=== PATIENT | female | born 1960 | race Caucasian/White ===

== ENCOUNTER → 2018-10-13 09:19 | Outpatient (CLI) | payer OTHER, SELFPAY ==
--- NOTE | 2018-10-13 09:31 | US_ITS ---
STUDY: ULTRASOUND BREAST - RIGHT REASON FOR EXAM: Female, 58 years old. Palpable lump TECHNIQUE: Axial and longitudinal images of the RIGHT breast were performed with a high resolution ultrasound transducer. COMPARISON: None. FINDINGS: RIGHT Breast: Ultrasound evaluation of the palpable right breast lump shows it to correspond with the punctate calcification in the right breast. There is a shadowing 0.5 x 0.4 x 0.5 cm subcutaneous nodule. No architectural distortion or vascularity noted. US/Breast Limited Unilateral IMPRESSION: Palpable lump corresponds to a punctate calcification. No suspicious sonographic findings, patient should return for yearly screening mammogram. ASSESSMENT CATEGORY: BIRADS Category 2: Benign. A letter regarding these results will be sent to the patient by the facility within 30 days. Electronically Signed: Stewrat Ochoa MD at 11:04 EDT , Service support ,
--- NOTE | 2018-10-13 09:31 | BI_ITS ---
MAMMOGRAPHY - BILATERAL DIAGNOSTIC REASON FOR EXAM: Female, 58 years old. Palpable lump PERTINENT HISTORY: Non-contributory. TECHNIQUE: Digital examination. Mediolateral oblique (MLO) and craniocaudad (CC) views of both breasts were obtained. CAD: CAD was performed on this study. COMPARISON: None. FINDINGS: Breast Composition: The breasts are heterogeneously dense, which may obscure small masses. There are no dominant masses or suspicious calcifications. No mammographic evidence of abnormality to correspond with the palpable lump in the right breast. However, further evaluation of this area with ultrasound is recommended to exclude an underlying lesion. No other significant abnormalities are identified. BI/DIAG MAMM W/CAD, BILAT IMPRESSION: Further ultrasonographic evaluation recommended, as described above. Recall Side: Right Breast ASSESSMENT CATEGORY: BIRADS Category 0: Incomplete. Need additional imaging evaluation. A letter regarding these results will be sent to the patient by the facility within 30 days. FOLLOW UP RECOMMENDATION: Ultrasound Recommended. (I) Approximately 10% of breast cancers are not detected by mammography. A normal mammogram should not delay biopsy of a clinically suspicious abnormality. Electronically Signed: Stewart Ochoa MD at 10:55 EDT , Service support ,
== END ==
PROVIDERS: Family Provider Family Medicine; PCP Family Medicine; Referring Provider Nurse Practitioner Family
DX: N63.13 Unspecified lump in the right breast, lower outer quadrant (principal)
CPT/HCPCS: 76642; 77062; 77066; G0279

== ENCOUNTER 2022-02-10 11:23 | Emergency (ER) | payer SELFPAY ==
[2022-02-10 11:25] VITALS: BP 107/55; PULSE 51; RESP 17; TEMP 36.4; O2SAT 98; BMI 19.5
[2022-02-10 11:38] VITALS: BP 124/57; PULSE 54; RESP 15; O2SAT 97
[2022-02-10 11:52] VITALS: BP 109/68; BP 110/72; BP 118/57; PULSE 52; PULSE 57; PULSE 62
--- NOTE | 2022-02-10 12:38 | CT_ITS ---
STUDY: CT BRAIN WITHOUT CONTRAST REASON FOR EXAM: Female, 61 years old. dizziness RADIATION DOSAGE (If Supplied By Facility): CTDIvol = ( 44.99 ) mGy, DLP = ( 779.24 ) mGycm TECHNIQUE: Transaxial CT imaging of the brain was performed without administration of intravenous contrast material. Individualized dose optimization techniques were used for this CT. COMPARISON: No relevant priors. FINDINGS: Normal soft tissue structures. Normal calvarium. Normal size ventricles and extra-axial spaces for the patient''s age. Normal white matter tracts of the cerebral hemispheres. Normal basal ganglia and thalami. Normal brainstem. Normal cerebellum. There is no intracranial hemorrhage. There are no findings of an acute ischemic infarction. Normal visualized paranasal sinuses. CT/Brain/Head without Contrast IMPRESSION: Normal unenhanced CT scan of the brain. Electronically Signed: Yannick Paul MD at 13:16 EDT ,
--- NOTE | 2022-02-10 12:41 | EX.ED.DYSGE1 ---
HPI History of Present Illness Chief Complaint: Dizziness Informant: patient Narrative Narrative: 61-year-old female states that this morning she turned her alarm off and went to sit up out of bed when she acutely became dizzy. She notes that it is worse when she has her eyes open and when she attempts to turn her head or walk. She does give a sensation that the room is spinning as well as nausea. She denies any headache or recent URIs. She denies any face arm or leg symptoms. No confusion. No tinnitus. She also notes pain in her right scapular region. Feels better with shortening of the rhomboid muscles. It is worse when she types at work and at home. [facility] Medical History (Updated 02/10/22 @ 12:[address] Sal Cook DO) Depression Home Medications hydrocodone-acetaminophen 5-325mg 5mg-325mg 1 tab PO Q6H PRN PRN Pain ##12 12/22/16 [Rx Last Taken Unknown] ibuprofen 600 mg tablet 600 mg PO Q6H PRN PRN Pain ##30 12/22/16 [Rx Last Taken Unknown] escitalopram oxalate 5 mg tablet 5 mg PO DAILY 02/10/22 [History Last Taken Unknown] Allergy/AdvReac Type Severity Reaction Status Date / Time No Known Allergies Allergy Verified 12/21/16 23:24 Social History (Updated 02/10/22 @ 12:[address] Sal Cook DO) Smoking Status: Current every day smoker tobacco type: cigarettes substance use type: does not use ROS ROS ED Constitutional Constitutional ED: Denies chills or weight loss Eyes Eyes: Denies change in vision or diplopia ENT ENT ED: Denies ear pain, rhinorrhea or sore throat Cardiovascular Cardiovascular: Denies chest pain, orthopnea, palpitations or racing heartbeat Respiratory/Chest Respiratory/Chest: Denies cough, dyspnea or orthopnea Gastrointestinal Gastrointestinal: Reports nausea; Denies abdominal pain, diarrhea or vomiting Genitourinary Genitourinary ED: Denies dysuria, hematuria or urinary frequency Musculoskeletal Musculoskeletal: Reports back pain; Denies arthralgias or myalgias Integumentary Denies abscess or rash Neurologic Neurologic: Denies headache(s) or weakness Psychiatric Psychiatric: Denies anxiety, depression, suicidal ideation or suicidal thoughts Endocrine Endocrinology: Denies polydipsia, polyphagia or polyuria Allergic/Immunologic Allergic/Immunologic ED: Denies mouth swelling, tongue swelling or urticaria EXAM Physical Exam Const Vital Signs: 02/10/22 11:25 02/10/22 11:38 02/10/22 11:39 Temperature 97.5 F L Temperature Source Temporal Pulse Rate 51 L 54 L Pulse Rate [Lying] Pulse Rate [Sitting (for 1 minute prior to obtaining)] Pulse Rate [Standing (for 1 minute prior to obtaining)] Respiratory Rate 17 15 Respiratory Effort Normal Non-Labored Respiratory Pattern Normal Blood Pressure 107/55 L 124/57 H Blood Pressure [Lying] Blood Pressure [Sitting (for 1 minute prior to obtaining)] Blood Pressure [Standing (for 1 minute prior to obtaining)] Blood Pressure Mean 72 79 Blood Pressure Mean [Lying] Blood Pressure Mean [Sitting (for 1 minute prior to obtaining)] Blood Pressure Mean [Standing (for 1 minute prior to obtaining)] Pulse Ox 98 97 Oxygen Delivery Method Room Air Room Air 02/10/22 11:52 02/10/22 13:52 Temperature Temperature Source Pulse Rate 68 Pulse Rate [Lying] 52 L Pulse Rate [Sitting (for 1 minute prior to obtaining)] 57 L Pulse Rate [Standing (for 1 minute prior to obtaining)] 62 Respiratory Rate 15 Respiratory Effort Respiratory Pattern Blood Pressure 110/58 L Blood Pressure [Lying] 118/57 L Blood Pressure [Sitting (for 1 minute prior to obtaining)] 110/72 Blood Pressure [Standing (for 1 minute prior to obtaining)] 109/68 Blood Pressure Mean 75 Blood Pressure Mean [Lying] 77 Blood Pressure Mean [Sitting (for 1 minute prior to obtaining)] 84 Blood Pressure Mean [Standing (for 1 minute prior to obtaining)] 81 Pulse Ox Oxygen Delivery Method Room Air Positive well nourished and well developed General Appearance ED: well developed HEENT Reports normocephalic, head/scalp atraumatic and moist mucous membranes Eyes PERRL and EOMs intact bilaterally Eyes Narrative: The factThere is some nystagmus component to the left. Neck no lymphadenopathy, supple and no JVD Resp normal respiratory effort and clear to auscultation bilaterally Cardio regular rate, regular rhythm and no murmurs GI normal to inspection, nondistended, normoactive bowel sounds and non-tender Palpation: soft Back/Spine no CVA tenderness and normal ROM Back/Spine Narrative: Patient has point tenderness in the knee right upper rhomboid muscle. There is a palpatory trigger point. Patient feels better with direct pressure and shortening of the muscle. No rashes Extremity normal to inspection General Extremety ED: Negative for edema General Extremity: Negative for edema Neuro oriented x3 and CN's II-XII intact bilaterally Sensorium / Orientation: alert Motor Exam: strength 5/5 throughout Psych mental status grossly normal Mood & Affect: Negative for depressed or tearful Skin no rashes or lesions noted and no wounds MDM MDM MDM Narrative Medical decision making narrative: CT the brain is negative. His CBC BMP is normal. Patient received diazepam and Zofran. She is able to walk to the bathroom states she feels more sedated than dizzy. I think this is most likely to be positional vertigo. Patient states now she typically will go onto her left side and then set up rather than going from a flat position to sitting up which is what she did today. She does this because of dizziness. Patient will be prescribed some diazepam and Zofran to have at home. I will give her handout on home treatment and would recommend ENT follow-up if this becomes problematic. Lab Data Attestation: I reviewed the patient's lab results. Labs: Laboratory Results - last 24 hr 02/10/22 02/10/22 11:49 11:49 WBC 5.0 RBC 3.48 L Hgb 12.1 Hct 35.8 L MCV 102.9 H MCH 34.8 H MCHC 33.8 RDW Std Deviation 48.7 H RDW Coeff of Emmie 13.0 Plt Count 234 MPV 11.0 Immature Gran % (Auto) 0.200 Neut % (Auto) 45.1 L Lymph % (Auto) 46.6 H Kidder % (Auto) 6.5 Eos % (Auto) 1.2 Baso % (Auto) 0.4 Absolute Neuts (auto) 2.3 Absolute Lymphs (auto) 2.35 Nucleated RBC % 0 Sodium 141 Potassium 3.6 Chloride 109 H Carbon Dioxide 29.0 Anion Gap 3 L BUN 9 Creatinine 0.72 Estim Creat Clear Calc 64.63 Est GFR (MDRD) Af Amer 106 Est GFR (MDRD) Non-Af 88 BUN/Creatinine Ratio 12.6 Glucose 78 Calcium 8.7 Radiography Diagnostic Testing: Clinical Impression(s) from Imaging Studies Brain CT 02/10/22 12:38 IMPRESSION: Normal unenhanced CT scan of the brain. Electronically Signed: Yannick Paul MD at 13:16 EDT , Discharge Plan Triage Chief Complaint: Dizziness ED Provider: Sal Cook Dx/Rx/DC Orders Clinical Impression: Muscle spasm of right shoulder, Vertigo Prescriptions: No Action hydrocodone-acetaminophen 1 TABLET tablet 1 tab PO Q6H PRN PRN (Reason: Pain) Qty: 12 0RF ibuprofen 600 MG tablet 600 mg PO Q6H PRN PRN (Reason: Pain) Qty: 30 0RF escitalopram oxalate 5 mg tablet 5 mg PO DAILY Label Comments: take 1 tablet by mouth once daily Primary Care Provider: Eleanor Calabrese Referrals: [facility] Eleanor Rodgers [Primary Care Provider] -
[2022-02-10] MEDS: Ondansetron 4 MG/2 ML Vial IV (12:44)
[2022-02-10] MEDS: diazePAM 5 MG Tablet PO (12:44)
[2022-02-10 12:51] LABS: Absolute Lymphocyte Count 2.35 X10^3/uL (0.83-4.51); Absolute Neutrophil Count 2.3 X10^3/uL (2.0-7.7); Basophil# 0.02 X10^3/uL; Basophil% 0.4 % (0-1); Eosinophil# 0.06 X10^3/uL; Eosinophils% 1.2 % (0-5); Hematocrit 35.8 % (37-47); Hemoglobin 12.1 g/dL (12.0-15.0); Lymphocyte # 2.35 X10^3/ul (0.83-4.51); Lymphocyte % 46.6 % (19-41); Mean Corp Hgb Conc 33.8 g/dL (32-36); Mean Corpuscular Hgb 34.8 pg (27.0-32.0); Mean Corpuscular Volume 102.9 fL (81-99); Monocyte# 0.33 X10^3/uL; Monocyte% 6.5 % (0-10); NRBC Flagged by Analyzer 0 % (0-5); Neutrophil # 2.27 X10^3/uL (2.7-7.7); Neutrophil % 45.1 % (47-70); Platelet Count 234 K/mm3 (150-450); RBC Distribution Width SD 48.7 fl (35.1-43.9); Red Blood Count 3.48 M/mm3 (4.2-5.4)
[2022-02-10 13:09] LABS: Anion Gap 3 (5-15); BUN 9 mg/dL (7-18); BUN/Creat Ratio 12.6 RATIO (10-20); Calcium,Total 8.7 mg/dL (8.5-10.1); Chloride 109 mmol/L (98-107); Creatinine, Serum 0.72 mg/dL (0.55-1.02); EST Glomerular Filtration Rate 88 mL/min (>60); Est Glom Filt Rate - Afr Amer 106 mL/min (>60); Estimated Creatinine Clearance 64.63 ml/min; Glucose 78 mg/dL (74-106); Potassium 3.6 mmol/L (3.5-5.1); Sodium Level 141 mmol/L (136-145)
[2022-02-10 13:52] VITALS: BP 110/58; PULSE 68; RESP 15
== END 2022-02-10 14:31 | disposition home or self-care (01) ==
PROVIDERS: Emergency Provider Emergency Medicine; Visit Provider Emergency Medicine
DX: R42 Dizziness and giddiness (principal); M62.838 Other muscle spasm; F17.210 Nicotine dependence, cigarettes, uncomplicated
CPT/HCPCS: 70450; 80048; 85025; 96374; 99285; A4216; J2405

== ENCOUNTER 2022-02-16 11:08 | Observation (INO) | payer SELFPAY ==
[2022-02-16 11:09] VITALS: BP 100/75; PULSE 62; RESP 18; TEMP 36.5; O2SAT 95; BMI 19.5
[2022-02-16 11:21] VITALS: BP 106/71; PULSE 62; RESP 13; O2SAT 97
--- NOTE | 2022-02-16 12:15 | CT_ITS ---
STUDY: CTA HEAD AND NECK WITH CONTRAST REASON FOR EXAM: Female, 61 years old. Vertigo RADIATION DOSAGE (If Supplied By Facility): CTDIvol = ( 20.34 ) mGy, DLP = ( 604.32 ) mGycm TECHNIQUE: CT angiography was performed with a multi-detector CT scanner. Data acquisition was obtained from the skull base through the vertex following intravenous administration of IV 75mL [id number]-[id number]. MIP images were reconstructed from the axial data set. Post-processing of the angiographic images was performed, with multiplanar reformation and 3D reconstruction. Individualized dose optimization techniques were used for this CT. COMPARISON: No relevant priors. FINDINGS: Normal bilateral petrous carotid arteries. Normal right cavernous carotid artery with a normal supraclinoid bifurcation. There is calcified plaque formation of the left cavernous carotid artery, without a cross-sectional luminal stenosis. Normal right A1 segments of the anterior cerebral artery. Normal left A1 segments of the anterior cerebral artery. Normal intact anterior communicating artery (ACOM). Normal bilateral A2 segments of the anterior cerebral arteries. Normal right M1 and M2 segments of the middle cerebral arteries, with a normal M1 bifurcation. Normal left M1 and M2 segments of the middle cerebral arteries, with a normal M1 bifurcation. Normal right posterior communicating artery (PCOM). Normal left posterior communicating artery (PCOM). Normal bilateral vertebral arteries. Normal basilar artery with a normal basilar bifurcation. The visualized bilateral superior cerebellar (SCA) arteries are normal. Normal bilateral P1, P2 and visualized P3 segments of the posterior cerebral arteries. There is no demonstrated aneurysm of the [place]. Minimal degree of mucosal thickening of the right maxillary sinus. AORTIC ARCH: Normal visualized aortic arch. Normal origins of the brachiocephalic, left common carotid, and left subclavian arteries. RIGHT CAROTID ARTERIES: Normal right common carotid artery (CCA). Normal right common carotid bulb. Normal origin of the right internal carotid (ICA) artery without a hemodynamically significant stenosis. Normal visualized cervical portion of the right internal carotid artery. Normal origin of the right external carotid artery (ECA). LEFT CAROTID ARTERIES: Normal left common carotid artery (CCA). Normal left common carotid bulb. Normal origin of the left internal carotid (ICA) artery without a hemodynamically significant stenosis. Normal visualized cervical portion of the left internal carotid artery. Normal origin of the left external carotid artery (ECA). VERTEBRAL ARTERIES: Normal bilateral vertebral arteries. IMPRESSION: Normal CTA Head and neck with contrast. Electronically Signed: Yannick Paul MD at 13:40 EDT , STUDY: CT BRAIN WITHOUT CONTRAST REASON FOR EXAM: Female, 61 years old. Vertigo RADIATION DOSAGE (If Supplied By Facility): CTDIvol = ( 44.99 ) mGy, DLP = ( 779.24 ) mGycm TECHNIQUE: Transaxial CT imaging of the brain was performed without administration of intravenous contrast material. Individualized dose optimization techniques were used for this CT. COMPARISON: No relevant priors. FINDINGS: Normal soft tissue structures. Normal calvarium. Normal size ventricles and extra-axial spaces for the patient''s age. Normal white matter tracts of the cerebral hemispheres. Normal basal ganglia and thalami. Normal brainstem. Normal cerebellum. There is no intracranial hemorrhage. There are no findings of an acute ischemic infarction. Minimal degree of mucosal thickening of the inferior aspect of the right maxillary sinus. CT/CTA Head AND Neck W/ Contrast IMPRESSION: Normal unenhanced CT scan of the brain. Electronically Signed: Yannick Paul MD at 13:40 EDT ,
--- NOTE | 2022-02-16 12:15 | EKG12_ITS ---
Test Reason : dizziness Blood Pressure : / mmHG Vent. Rate : 057 BPM Atrial Rate : 057 BPM P-R Int : 172 ms QRS Dur : 086 ms QT Int : 430 ms P-R-T Axes : 079 075 073 degrees QTc Int : 418 ms Sinus bradycardia Otherwise normal ECG Confirmed by VICTORIA VALLE, RONAL ([id number]), editor map MARITZA GARCIA ([id number]) on 02/18/2022 8:05:50 AM Referred By: Blanca Confirmed By:RONAL KESSLER MD
--- NOTE | 2022-02-16 12:19 | EDS_ITS ---
HPI History of Present Illness Chief Complaint: Dizziness Informant: patient Onset/Context/Timing Onset: Days Context: Gradual Onset Current Severity: Mild Maximum Severity: Moderate Narrative Narrative: Patient presents secondary to continued vertigo. She was seen approximately week ago with vertigo symptoms. Head CT and lab work unremarkable. She was improved with Zofran and Valium. Patient states in spite of taking these medications over the past week she still has significant vertigo. This morning she started getting sharp pain in front of her right ear. She tried Kathy maneuvers this morning which she states nearly made her pass out from dizziness. [facility] Medical History Depression Home Medications hydrocodone-acetaminophen 5-325mg 5mg-325mg 1 tab PO Q6H PRN PRN Pain ##12 12/22/16 [Rx Last Taken Unknown] ibuprofen 600 mg tablet 600 mg PO Q6H PRN PRN Pain #30 tabs 12/22/16 [Rx Last Taken Unknown] diazepam 5 mg tablet 5 mg PO Q8 PRN Vertigo #10 tabs 02/10/22 [Rx Last Taken Unknown] escitalopram oxalate 5 mg tablet 5 mg PO DAILY 02/10/22 [History Last Taken Unknown] ondansetron 4 mg disintegrating tablet 4 mg PO Q6H PRN PRN Nausea #10 tabs 02/10/22 [Rx Last Taken Unknown] Allergy/AdvReac Type Severity Reaction Status Date / Time No Known Allergies Allergy Verified 02/16/22 11:13 Social History Smoking Status: Current every day smoker tobacco type: cigarettes substance use type: does not use ROS ROS ED Constitutional Constitutional ED: Denies chills or fever(s) Eyes Eyes: Denies change in vision or discharge from eye(s) ENT ENT ED: Reports other Details: Right facial pain ; Denies discharge from eye(s), rhinorrhea or sore throat Cardiovascular Cardiovascular: Denies chest pain or palpitations Respiratory/Chest Respiratory/Chest: Denies cough or dyspnea Gastrointestinal Gastrointestinal: Denies abdominal pain, diarrhea, nausea or vomiting Genitourinary Genitourinary ED: Denies difficulty urinating or dysuria Musculoskeletal Musculoskeletal: Denies back pain or extremity pain Integumentary Denies Abrasions or rash Neurologic Neurologic: Denies headache(s) or weakness Psychiatric Psychiatric: Denies anxiety or depression Endocrine Endocrinology: Denies polydipsia or polyuria Allergic/Immunologic Allergic/Immunologic ED: Denies lip swelling or urticaria EXAM Physical Exam Const Vital Signs: 02/16/22 11:09 02/16/22 11:21 02/16/22 11:23 Temperature 97.7 F L Temperature Source Temporal Pulse Rate 62 62 Respiratory Rate 18 13 Respiratory Effort Normal Non-Labored Respiratory Pattern Normal Blood Pressure 100/75 106/71 Blood Pressure Mean 83 82 Pulse Ox 95 97 Oxygen Delivery Method Room Air 02/16/22 13:56 Temperature Temperature Source Pulse Rate 62 Respiratory Rate 15 Respiratory Effort Respiratory Pattern Blood Pressure 110/66 Blood Pressure Mean 80 Pulse Ox 97 Oxygen Delivery Method Room Air Positive well nourished and well developed General Appearance ED: well developed HEENT Reports normocephalic and head/scalp atraumatic Eyes PERRL and EOMs intact bilaterally Neck supple Chest Wall inspection of chest normal and palpation of chest normal Resp normal respiratory effort and clear to auscultation bilaterally Cardio regular rate and regular rhythm GI normal to inspection, nondistended, normoactive bowel sounds Palpation: soft Back/Spine no CVA tenderness Extremity normal to inspection Neuro oriented x3 and no sensory deficits noted Sensorium / Orientation: alert Motor Exam: strength 5/5 throughout Psych mental status grossly normal Skin no rashes or lesions noted MDM MDM MDM Narrative Medical decision making narrative: Recent work-up was reviewed. Lab work obtained along with CTA of the head and neck. EKG ordered. Patient given fluids and Antivert. Lab Data Attestation: I reviewed the patient's lab results. Labs: Laboratory Results - last 24 hr 02/16/22 02/16/22 12:33 12:33 WBC 4.5 RBC 3.63 L Hgb 12.5 Hct 36.6 L MCV 100.8 H MCH 34.4 H MCHC 34.2 RDW Std Deviation 46.9 H RDW Coeff of Emmie 12.7 Plt Count 241 MPV 10.2 Immature Gran % (Auto) 0.200 Neut % (Auto) 46.5 L Lymph % (Auto) 41.6 H Love % (Auto) 8.4 Eos % (Auto) 2.4 Baso % (Auto) 0.9 Absolute Neuts (auto) 2.1 Absolute Lymphs (auto) 1.89 Nucleated RBC % 0 Sodium 140 Potassium 4.0 Chloride 108 H Carbon Dioxide 30.0 Anion Gap 2 L BUN 9 Creatinine 0.82 Estim Creat Clear Calc 56.75 Est GFR (MDRD) Af Amer 92 Est GFR (MDRD) Non-Af 76 BUN/Creatinine Ratio 11.0 Glucose 90 Calcium 9.2 Radiography Diagnostic Testing: Clinical Impression(s) from Imaging Studies Head/Neck CTA 02/16/22 12:15 IMPRESSION: Normal unenhanced CT scan of the brain. Electronically Signed: Yannick Paul MD at 13:40 EDT , EKG Initial EKG: Attestation: I personally reviewed and interpreted this EKG as follows: Interpretation: Sinus Bradycardia (Sinus bradycardia 57 bpm. No acute ischemia.) Treatment and Re-Evaluation Narrative: Repeat evaluation patient still reports feeling dizzy. She had to use a wheelchair to go to the restroom and back. Lab work and CTA are unremarkable. At this time I did recommend observation in the hospital as she has not improved with the past week at home. I will speak with the hospitalist. Discharge Plan Triage Chief Complaint: Dizziness ED Provider: Beatriz Rios Dx/Rx/DC Orders Clinical Impression: Vertigo Prescriptions: No Action hydrocodone-acetaminophen 1 TABLET tablet 1 tab PO Q6H PRN PRN (Reason: Pain) Qty: 12 0RF ibuprofen 600 MG tablet 600 mg PO Q6H PRN PRN (Reason: Pain) Qty: 30 0RF escitalopram oxalate 5 mg tablet 5 mg PO DAILY Label Comments: take 1 tablet by mouth once daily ondansetron [ondansetron] 4 mg tablet,disintegrating 4 mg PO Q6H PRN PRN (Reason: Nausea) Qty: 10 0RF diazepam [diazepam] 5 mg tablet 5 mg PO Q8 PRN (Reason: Vertigo) Qty: 10 0RF [facility] - Disposition Disposition: Acute Care [facility]
[2022-02-16] MEDS: Meclizine HCl 25 MG Tablet PO (12:31)
[2022-02-16] MEDS: 0.9% Normal Saline 1,000 ML 1000 ML IV (12:31)
[2022-02-16 12:44] LABS: Absolute Lymphocyte Count 1.89 X10^3/uL (0.83-4.51); Absolute Neutrophil Count 2.1 X10^3/uL (2.0-7.7); Basophil# 0.04 X10^3/uL; Basophil% 0.9 % (0-1); Eosinophil# 0.11 X10^3/uL; Eosinophils% 2.4 % (0-5); Hematocrit 36.6 % (37-47); Hemoglobin 12.5 g/dL (12.0-15.0); Lymphocyte # 1.89 X10^3/ul (0.83-4.51); Lymphocyte % 41.6 % (19-41); Mean Corp Hgb Conc 34.2 g/dL (32-36); Mean Corpuscular Hgb 34.4 pg (27.0-32.0); Mean Corpuscular Volume 100.8 fL (81-99); Mean Platelet Vol. 10.2 fl (6.2-12.0); Monocyte# 0.38 X10^3/uL; Monocyte% 8.4 % (0-10); NRBC Flagged by Analyzer 0 % (0-5); Neutrophil # 2.11 X10^3/uL (2.7-7.7); Neutrophil % 46.5 % (47-70); Platelet Count 241 K/mm3 (150-450); RBC Distribution Width CV 12.7 % (11.6-14.6); RBC Distribution Width SD 46.9 fl (35.1-43.9); Red Blood Count 3.63 M/mm3 (4.2-5.4); White Blood Count 4.5 K/mm3 (4.4-11.0)
[2022-02-16 12:52] LABS: Anion Gap 2 (5-15); BUN 9 mg/dL (7-18); Calcium,Total 9.2 mg/dL (8.5-10.1); Chloride 108 mmol/L (98-107); Creatinine, Serum 0.82 mg/dL (0.55-1.02); EST Glomerular Filtration Rate 76 mL/min (>60); Est Glom Filt Rate - Afr Amer 92 mL/min (>60); Estimated Creatinine Clearance 56.75 ml/min; Glucose 90 mg/dL (74-106); Sodium Level 140 mmol/L (136-145)
[2022-02-16 13:56] VITALS: BP 110/66; PULSE 62; RESP 15; O2SAT 97
[2022-02-16 14:29] VITALS: BP 111/69; PULSE 69; RESP 13; TEMP 36.6; O2SAT 98
[2022-02-16 14:43] VITALS: BMI 19.5
[2022-02-16 15:17] VITALS: BP 110/66; PULSE 108; RESP 14; TEMP 36.8; O2SAT 97
--- NOTE | 2022-02-16 15:45 | PCM.HP.STD ---
HPI - General General Date of Admission: 02/16/22 Date of Service: 02/16/22 Chief Complaint: Vertigo HPI Narrative JOSE ALANIZ, is a 61 F who presents to the emergency room at [facility] with complaints of continued vertigo over the past week. Patient was seen in the emergency room on 02/10/2022 for similar complaints, CT of the brain was done at that time which was unremarkable, patient's lab work was also unremarkable. Patient was given prescriptions for his Valium which she has been taking intermittently since that time-she states is not working well at home. Work-up today in the emergency room include a CT of the head and neck as well as a CT of the brain-these imaging studies were all unremarkable. Patient's labs were also unremarkable. Patient will be admitted to [place] [id number] for vertigo, she will be given programmed oral Valium and she will be seen by PT and OT. I have chosen not to perform an MRI on the patient as I do not believe it is necessary at this time. [facility] Medical History Depression Home Medications ibuprofen 600 mg tablet 600 mg PO Q6H PRN PRN Pain #30 tabs 12/22/16 [Rx Last Taken Unknown] escitalopram oxalate 5 mg tablet 5 mg PO DAILY mood 02/10/22 [History Last Taken 02/15/22] ondansetron 4 mg disintegrating tablet 4 mg PO Q6H PRN PRN Nausea #10 tabs 02/10/22 [Rx Last Taken Unknown] Allergy/AdvReac Type Severity Reaction Status Date / Time No Known Allergies Allergy Verified 02/16/22 11:13 Social History Smoking Status: Current every day smoker tobacco type: cigarettes substance use type: does not use ROS Constitutional Constitutional: Denies anorexia, change in weight, chills, fatigue, fever(s), malaise, night sweats or weakness Eyes Eyes: Denies blurry vision, change in eye color, change in vision, discharge from eye(s), double vision or eye pain ENT HEENT: Denies abnormal hearing, dysphagia, epistaxis or headache(s) Cardiovascular Cardiovascular: Denies chest pain, claudication, dyspnea on exertion, edema, lightheadedness, orthopnea or palpitations Respiratory/Chest Respiratory/Chest: Denies cough, dyspnea, excessive phlegm production, hemoptysis, productive cough, shortness of breath at rest or shortness of breath with exertion Gastrointestinal Gastrointestinal: Denies abdominal pain, coffee ground emesis, constipation, diarrhea, dyspepsia, hematemesis, hematochezia, melena, nausea or vomiting Genitourinary Genitourinary: Denies difficulty urinating, dysuria, hematuria, nocturia, urinary frequency, urinary hesitancy, urinary incontinence or urinary urgency Musculoskeletal Musculoskeletal: Denies back pain, joint pain, joint stiffness, joint swelling, myalgias or neck pain Neurologic Neurologic: Reports dizziness; Denies abnormal gait, abnormal speech, confusion, disequilibrium, focal weakness, headache(s), loss of vision, numbness, other visual disturbances, paresthesias, syncope or tingling Psychiatric Psychiatric: Denies anxiety, cognitive impairment, depression, irritability, mood swings or suicidal ideation Endocrine Endocrinology: Denies change in body appearance, cold intolerance, excessive sweating, heat intolerance, polydipsia or polyuria Hematologic/Lymphatic Hematologic/Lymphatic: Denies none, anemia, easy bleeding, easy bruising or lymphadenopathy Allergic/Immunologic Allergic/Immunologic: Denies rhinitis, urticaria, eczemia or asthma Vital Signs Vital Signs Vital Signs: 02/16/22 11:09 02/16/22 11:21 02/16/22 11:23 Temperature 97.7 F L Temperature Source Temporal Pulse Rate 62 62 Respiratory Rate 18 13 Respiratory Effort Normal Non-Labored Respiratory Pattern Normal Blood Pressure 100/75 106/71 Blood Pressure Mean 83 82 Blood Pressure Source Blood Pressure Position Blood Pressure Location Pulse Ox 95 97 Oxygen Delivery Method Room Air 02/16/22 13:56 02/16/22 14:29 02/16/22 15:17 Temperature 97.8 F 98.2 F Temperature Source Oral Oral Pulse Rate 62 69 108 H Respiratory Rate 15 13 14 Respiratory Effort Respiratory Pattern Blood Pressure 110/66 111/69 110/66 Blood Pressure Mean 80 83 80 Blood Pressure Source Monitor Blood Pressure Position Semi-Fowlers Blood Pressure Location Left Arm Pulse Ox 97 98 97 Oxygen Delivery Method Room Air Room Air Room Air Weight Weight: 49.895 kg Body Mass Index (BMI) 19.5 Physical Exam Const alert, oriented x3, no apparent distress and healthy appearing General Appearance: cooperative, well kempt and well developed Orientation / Consciousness: awake, oriented to person, oriented to place and oriented to time HEENT normocephalic, head/scalp atraumatic, hearing grossly normal bilaterally and moist oral mucous membranes Eyes PERRL, EOMs intact bilaterally and conjunctivae normal Neck supple, no JVD, thyroid normal and no carotid bruits General: trachea midline Resp normal respiratory effort, no retractions, no use of accessory muscles and clear to auscultation bilaterally Auscultation: Negative for rales, rhonchi or wheezes Cardio regular rate, regular rhythm, S1 normal heart sound, S2 normal heart sound, no murmurs, no rub and no gallops GI normal to inspection, nondistended, normoactive bowel sounds, soft to palpation, non-tender and non-distended Extremity no clubbing, cyanosis or edema Skin no rashes or lesions noted General Skin Exam: no breakdown Neuro oriented x3, CN's II-XII intact bilaterally, moves all extremities, no focal motor deficits and no sensory deficits noted Neuro Narrative: Patient was not ambulated during my evaluation. Sensorium / Orientation: awake, alert, oriented to person, oriented to place and oriented to time Speech: speech normal Psych affect normal Results Lab / Micro Data Result Diagrams: 02/16/22 12:33 02/16/22 12:33 Labs: Laboratory Results - last 24 hr 02/16/22 12:33: WBC 4.5, RBC 3.63 L, Hgb 12.5, Hct 36.6 L, MCV 100.8 H, MCH 34.4 H, MCHC 34.2, RDW Std Deviation 46.9 H, RDW Coeff of Emmie 12.7, Plt Count 241, MPV 10.2, Immature Gran % (Auto) 0.200, Neut % (Auto) 46.5 L, Lymph % (Auto) 41.6 H, [place] % (Auto) 8.4, Eos % (Auto) 2.4, Baso % (Auto) 0.9, Absolute Neuts (auto) 2.1, Absolute Lymphs (auto) 1.89, Nucleated RBC % 0 02/16/22 12:33: Sodium 140, Potassium 4.0, Chloride 108 H, Carbon Dioxide 30.0, Anion Gap 2 L, BUN 9, Creatinine 0.82, Estim Creat Clear Calc 56.75, Est GFR (MDRD) Af Amer 92, Est GFR (MDRD) Non-Af 76, BUN/Creatinine Ratio 11.0, Glucose 90, Calcium 9.2 Radiology Impression Head/Neck CTA 02/16/22 12:15 IMPRESSION: Normal unenhanced CT scan of the brain. Electronically Signed: Yannick Paul MD at 13:40 EDT , Assessment & Plan Assessment/Plan (1) Vertigo: PLAN: Plan 1. Persistent vertigo-probably benign postural vertigo-patient will be placed in observation status on MedSurg 3, she will be placed on program Valium 2 mg 4 times a day, she will be evaluated by PT and OT #2 chronic depression-patient takes Lexapro at home, this will be continued Charges/Coding Visit Charges OBSV E&M: 62950 Initial observation care L3
[2022-02-16] MEDS: diazePAM 2 MG Tablet PO ×2 (18:40→22:57)
[2022-02-16 21:38] VITALS: BP 97/59; PULSE 66; RESP 16; TEMP 36.6; O2SAT 96
[2022-02-17 03:36] VITALS: BP 90/52; PULSE 86; RESP 16; TEMP 36.6; O2SAT 95
[2022-02-17 06:29] VITALS: BP 101/58; PULSE 70; RESP 16; TEMP 36.8; O2SAT 98
[2022-02-17 08:09] VITALS: BP 101/61; PULSE 51; RESP 16; TEMP 36.5; O2SAT 96
[2022-02-17] MEDS: Escitalopram Oxalate 10 MG Tablet 5 MG PO (09:00)
[2022-02-17] MEDS: Ibuprofen 600 MG Tablet PO (11:00)
[2022-02-17 11:02] VITALS: BP 97/76; PULSE 50; RESP 16; TEMP 36.6; O2SAT 95
--- NOTE | 2022-02-17 11:13 | CASEMGMT ---
Social Work Consult: Self-pay Referral source: Self referral due to self pay status. This director of social services met with patient in room. Introduced self and director of social services role. Patient agreeable to speak with this director of social services. Marital/Social History: . Living situation: Private apartment, lives alone. Support/Resources: Patient has a daughters, Sangeeta that lives local. Patient son, Harjinder is currently out of state. Patient reports positive support from Sangeeta she is great. Education/Employment Status: Full-time employed at [employer]. No issues with comprehension or understanding, reading/writing. Mental Health Treatment/History: Reports history of Depression and to be currently taking medication to manage depression. Patient denies active counseling services or history of inpatient psychiatric placement. Patient [facility] depression [facility]. Patient denies any history of suicidal thoughts, plans, intents or currently. Patient denies homicidal thoughts, plans, intents or history of. Transportation: Drives self and has own car. PCP: Eleanor Peguero Substance Abuse Hx: Smokes tobacco daily. Denies any other substance abuse/use. Advanced care Planning: Patient denies having a living will or health care power of state attorney. Patient is unsure about completing documents at this time. This director of social services provided patient with director of social services rack card and encouraged patient to call in to set up a time to meet to complete documents. This director of social services also educated patient that if patient would change mind about completing documents while in the hospital to ask for a director of social services and a director of social services can stop by to assist patient, patient voiced understanding and thanked this director of social services. Assessment: This director of social services broached conversation of self-pay status. Patient reports to be self pay due to not being able to afford insurance premiums at work. Patient agreeable to this director of social services providing patient with community resources that might be helpful to patient. This director of social services provided patient with information on Medicaid application along with how to apply for Medicaid and where to bring application when completed. This director of social services provided patient with information on Community Action, Prescription assistance programs and [facility] [email or web address] Card. Patient thanked this director of social services for the information. Patient plans to look into Medicaid application and see if patient would qualify. Patient denies any other questions. PLAN: Return to the community. No further needs identified or indicated. Ruben MARIE, AILIN
--- NOTE | 2022-02-17 12:40 | CASEMGMT ---
Addendum entered by Lizeth Golden 02/17/22 16:04: TC to [facility], pt rx cost is $11.81. Pt aware and states this is affordable to her. Pt denies further needs. Original Note: RN MADISON in to pt room, pt sitting up in chair. Discussed FWW with patient. She declines currently for FWW stating that she is going to check with her neighbor to borrow d/t being self pay. Discussed therapy options, pt declined. SHIVANI WALLACE to follow for cost of medications d/t self pay, pt agreeable to getting meds at [facility]. SHIVANI WALLACE to follow for any needs. Pt denies further needs at this time.
[2022-02-17] MEDS: Meclizine 12.5 MG Tablet PO (13:54)
[2022-02-17 14:50] VITALS: BP 108/62; PULSE 62; RESP 16; TEMP 36.9; O2SAT 97
--- NOTE | 2022-02-17 15:39 | DCINST_ITS ---
Discharge Instructions Diet Discharge Diet: No restrictions Activity Discharge Activity: Return to Normal Activity Dressing / Incision Call your doctor if you observe: Shortness of breath, Dizziness and Chest pain Follow Up Care Test Results: Test results from this visit will be discussed in further detail at your follow- up appointment, if applicable. Discharge Plan Admission Admit Date/Time: 02/16/22 14:23 Primary Reason for Your Visit: Vertigo Attending Provider: Arya Olsen [facility] Providers: Hao Ryan Additional Instructions / Restrictions: Follow up with ENT if persistent vertigo. Discharge Orders/Prescriptions Prescriptions: New meclizine 12.5 mg Tablet 12.5 mg PO TID PRN PRN (Reason: vertigo) Qty: 20 0RF Continued ibuprofen 600 MG tablet 600 mg PO Q6H PRN PRN (Reason: Pain) Qty: 30 0RF escitalopram oxalate 5 mg tablet 5 mg PO DAILY Label Comments: take 1 tablet by mouth once daily ondansetron 4 mg tablet,disintegrating 4 mg PO Q6H PRN PRN (Reason: Nausea) Qty: 10 0RF [facility] - In 1 Week Disposition Disposition (needs filled in before D/C Order can be placed): Home, Self Care
--- NOTE | 2022-02-17 15:45 | DS.PCM_ITS ---
Documented by User: Dasia Earl NP, [email or web address] 02/17/22 15:48 Providers Date of Admission: 02/16/22 Date of Discharge: 02/17/22 Primary Care Physician: [facility] Reason For Visit: VERTIGO Diagnosis Discharge Diagnosis (1) Vertigo: Status: Acute Code(s): R42 - Dizziness and giddiness Medications at Discharge Home Medications ibuprofen 600 mg tablet 600 mg PO Q6H PRN PRN Pain #30 tabs 12/22/16 escitalopram oxalate 5 mg tablet 5 mg PO DAILY mood 02/10/22 ondansetron 4 mg disintegrating tablet 4 mg PO Q6H PRN PRN Nausea #10 tabs 02/10/22 meclizine 12.5 mg tablet 12.5 mg PO TID PRN PRN vertigo #20 tabs 02/17/22 Hospital Course Operations None Procedures None Summary of Care Provided Hospital Course: Patient is a 61-year-old female admitted 02/16/2022 due to vertigo. 1. Persistent vertigo-symptoms reproducible with position changes. Patient states Valium did not work. Meclizine ordered and symptoms improved. PT/OT evaluation during admission. If symptoms continue, recommend follow-up with ENT. Follow-up with PCP in [address] normal. Head and neck CTA normal. 2. Depression-on escitalopram. Patient seen and examined prior to discharge. Physical assessment as noted be low. Patient is stable for discharge with follow up recommendations as noted above. This patient was seen by JOSE Payan under the supervision of Dr. Olsen. Time spent examining patient, reviewing data and subsequent management of care: 20 minutes Physical Exam Const alert, oriented x3 and no apparent distress Orientation / Consciousness: awake, oriented to person, oriented to place and oriented to time HEENT normocephalic and moist oral mucous membranes Eyes PERRL, EOMs intact bilaterally and conjunctivae normal Neck no lymphadenopathy Resp normal respiratory effort and clear to auscultation bilaterally Cardio regular rate, regular rhythm and no murmurs Peripheral Pulses: pulses 2+ throughout GI normal to inspection, nondistended, normoactive bowel sounds, non-tender and non-distended Extremity normal to inspection Skin no rashes or lesions noted Lesions: no lesions Rashes: no rashes Trauma: no lacerations or abrasions Neuro CN's II-XII intact bilaterally, no focal motor deficits, no sensory deficits noted and deep tendon reflexes 2+ bilaterally Psych mental status grossly normal and affect normal Weight / BMI Weight Weight: 110 lb Body Mass Index (BMI) 19.5 ABG / Lab / Microbiology Data Result Diagrams: 02/16/22 12:33 02/16/22 12:33 D/C Instructions Discharge Diet: No restrictions Call your doctor if you observe: Shortness of breath, Dizziness and Chest pain Meaningful Use Info Meaningful Use Diagnoses (Choose all that apply): None applicable Discharge Plan Admission Admit Date/Time: 02/16/22 14:23 Primary Reason for Your Visit: Vertigo Attending Provider: Arya Olsen [facility] Providers: Hao Ryan Additional Instructions / Restrictions: Follow up with ENT if persistent vertigo. Discharge Orders/Prescriptions Prescriptions: New meclizine 12.5 mg Tablet 12.5 mg PO TID PRN PRN (Reason: vertigo) Qty: 20 0RF Continued ibuprofen 600 MG tablet 600 mg PO Q6H PRN PRN (Reason: Pain) Qty: 30 0RF escitalopram oxalate 5 mg tablet 5 mg PO DAILY Label Comments: take 1 tablet by mouth once daily ondansetron 4 mg tablet,disintegrating 4 mg PO Q6H PRN PRN (Reason: Nausea) Qty: 10 0RF [facility] - In 1 Week Disposition Disposition (needs filled in before D/C Order can be placed): Home, Self Care Documented by User: Dr. Arya Olsen MD 02/17/22 15:51 Providers Date of Admission: 02/16/22 Reason For Visit: VERTIGO Diagnosis Discharge Diagnosis (1) Vertigo: Status: Acute Code(s): R42 - Dizziness and giddiness Medications at Discharge Home Medications ibuprofen 600 mg tablet 600 mg PO Q6H PRN PRN Pain #30 tabs 12/22/16 escitalopram oxalate 5 mg tablet 5 mg PO DAILY mood 02/10/22 ondansetron 4 mg disintegrating tablet 4 mg PO Q6H PRN PRN Nausea #10 tabs 02/10/22 meclizine 12.5 mg tablet 12.5 mg PO TID PRN PRN vertigo #20 tabs 02/17/22 ABG / Lab / Microbiology Data Result Diagrams: 02/16/22 12:33 02/16/22 12:33 Discharge Plan Admission Admit Date/Time: 02/16/22 14:23 Primary Reason for Your Visit: Vertigo Attending Provider: Arya Olsen [facility] Providers: Hao Ryan Additional Instructions / Restrictions: Follow up with ENT if persistent vertigo. Discharge Orders/Prescriptions Prescriptions: New meclizine 12.5 mg Tablet 12.5 mg PO TID PRN PRN (Reason: vertigo) Qty: 20 0RF Continued ibuprofen 600 MG tablet 600 mg PO Q6H PRN PRN (Reason: Pain) Qty: 30 0RF escitalopram oxalate 5 mg tablet 5 mg PO DAILY Label Comments: take 1 tablet by mouth once daily ondansetron 4 mg tablet,disintegrating 4 mg PO Q6H PRN PRN (Reason: Nausea) Qty: 10 0RF Referrals / Follow [facility]: [facility] [Primary Care Provider] - In 1 Week Disposition Disposition (needs filled in before D/C Order can be placed): Home, Self Care Charges/Coding Addendum Addendum: Addendum: Dr. Olsen I personally examined the patient and reviewed the chart. I agree with the above. 61-year-old female presented to the hospital with vertigo. She had come to the hospital about a week prior with similar symptoms. Her vertigo was positional and that if she were laying still she did not have significant dizziness but as soon as she moved her head she did. Valium was prescribed initially which did not seem to help however she did get some relief with meclizine. Given the positional aspect of her vertigo and the fact that the CTA of her head and neck were unremarkable, I felt that it was safe for her to be discharged home on meclizine. If she does not have resolution of symptoms she can follow-up with physical therapy as an outpatient for vestibular therapy or follow-up with ENT. Clinical time spent in all aspects of patient care including discharge plannin minutes Visit Charges OBSV E&M: 53481 Observation care discharge
== END 2022-02-17 16:30 | disposition home or self-care (01) ==
LOC: ED 14:13 → MS3 14:40
PROVIDERS: Admitting Provider Internal Medicine; Emergency Provider Emergency Medicine; Visit Provider Family Medicine
DX: R42 Dizziness and giddiness (principal); F17.210 Nicotine dependence, cigarettes, uncomplicated; F32.A Depression, unspecified; Z79.899 Other long term (current) drug therapy; R00.1 Bradycardia, unspecified
CPT/HCPCS: 70496; 70498; 80048; 85025; 93005; 96360; 97162; 97166; 99218; 99285; 99406; Q9967; G0378

== ENCOUNTER → 2023-11-09 | Outpatient (CLI) | payer OTHER, SELFPAY ==
--- NOTE | 2023-11-09 15:24 | BI_ITS ---
MAMMOGRAPHY - BILATERAL SCREENING 3-D TOMOSYNTHESIS REASON FOR EXAM: Female, 63 years old. SCREENING PERTINENT HISTORY: No significant family history. TECHNIQUE: 2-D mammograms and 3-D Tomosynthesis of the breast (s) were performed. CAD was performed. COMPARISON: 10/13/2018 FINDINGS: The breast composition is Extermely dense tissue. Scattered benign calcifications are seen. No dense spiculated masses or suspicious microcalcifications are identified. No architectural distortion is identified. There is no skin thickening or retraction. There has been no significant change since the prior study. BI/SCRN MAMM (CAD)W/RADHA BILAT IMPRESSION: No mammographic signs of malignancy. Routine yearly mammograms recommended. ASSESSMENT CATEGORY: BIRADS Category 1: Negative. A letter regarding these results will be sent to the patient by the facility within 30 days. FOLLOW UP RECOMMENDATION: Yearly follow up mammogram recommended. (A) Approximately 10% of breast cancers are not detected by mammography. A normal mammogram should not delay biopsy of a clinically suspicious abnormality. Electronically Signed: Syed Bates MD at 9:33 EDT ,
== END | disposition home or self-care (01) ==
LOC: OPBI 15:23
PROVIDERS: Referring Provider Nurse Practitioner Family; Visit Provider Nurse Practitioner Family
DX: Z12.31 Encounter for screening mammogram for malignant neoplasm of breast (principal)
CPT/HCPCS: 77063; 77067

== ENCOUNTER 2023-12-15 10:21 | Day surgery (SDC) | payer OTHER, SELFPAY ==
[2023-12-15] VITALS (9 sets, daily range): BP systolic 93–106; BP diastolic 48–55; PULSE 56–66; RESP 16; TEMP 36.1–36.6; O2SAT 95–98; BMI 18.7
[2023-12-15] MEDS: Lactated Ringers 1,000 ML 15 ML IV (10:54)
--- NOTE | 2023-12-15 11:07 | PRE.ANES_ITS ---
ASA Classification* ASA Classification ASA Classification: 2 Assessment & Plan Anesthesia* Anesthesia Assessment Anesthesia Assessment: Discussed sedation and/or anesthesia options, risks, benefits, and alternatives with patient/parents/legal guardian/POA. Questions invited. The patient/parents/legal guardian/POA seems to understand and agrees to proceed with anesthesia plan. Reviewed the physical assessment, medical history, allergy history and patient home medications list prior to surgery/procedure/anesthetic and documented any changes. Performed airway and anesthesia risk assessments. Procedural Plan Procedural Plan:: Proceed w/ Anesthesia plan Anesthesia Type Anesthesia Type: MAC (see written pre anesthesia record for full assessment) Anesthesia Focused Assessment* Temperature: 98 F Pulse Rate: 57 Blood Pressure: 93/54 Respiratory Rate: 16 Pulse Ox: 98 Airway Assessment Mouth opens: >3 cm Mallampati Score: II Focused Labs Anesthesia Preop lab: CBC WBC 4.5 K/mm3 (4.4-11.0) 02/16/22 12:33 RBC 3.63 M/mm3 (4.2-5.4) L 02/16/22 12:33 Hgb 12.5 g/dL (12.0-15.0) 02/16/22 12:33 Hct 36.6 % (37-47) L 02/16/22 12:33 Plt Count 241 K/mm3 (150-450) 02/16/22 12:33 CHEMISTRY Potassium 4.0 mmol/L (3.5-5.1) 02/16/22 12:33 Sodium 140 mmol/L (136-145) 02/16/22 12:33 BUN 9 mg/dL (7-18) 02/16/22 12:33 Creatinine 0.82 mg/dL (0.55-1.02) 02/16/22 12:33 Glucose 90 mg/dL (74-106) 02/16/22 12:33 COAG Pre-Assessment Diagnosis/Proposed Procedure Planned Operative Procedure(s): COLONOSCOPY Anesthesia History Anesthesia History - gambling monitor: Anesthesia History - gambling monitor Hx Hospitalization No 12/12/23 11:12 Any Problems With Anesthesia No 12/12/23 11:12 Cholinesterase deficiency No 12/12/23 11:12 You/Your Family Experience No 12/12/23 11:12 fever (hyperthermia) with Relationship Recent Exposure to Contagious No 12/15/23 10:38 Disease Does patient have nerve No 12/12/23 11:12 stimulator Patient instructed to have device shut off --Does patient have Pacemaker No 12/15/23 10:38 or ICD? When Was Last Pacemaker Check QUESTION #4 FULL TEXT: You/Your Family Experience fever (hyperthermia) with Anesthesia Last Oral Intake Last Oral intake: Last Oral Intake NPO since 22:00 12/15/23 10:38 Meds taken in AM with sips of No 12/15/23 10:38 water? Meds patient instructed to take am of surgery PONV PONV - gambling monitor: PONV - gambling monitor Female Yes 12/12/23 11:12 HX of Motion Sickness No 12/12/23 11:12 HX of N/V After Surgery No 12/12/23 11:12 Non-Smoker No 12/12/23 11:12 Duration of Surgery greater No 12/12/23 11:12 than 60 minutes Number of Risk Factors 1 12/12/23 11:12 PONV Score Low Risk 12/12/23 11:12 Height & Weight Height & Weight: Anesthesia: Height & Weight Height 5 ft 3 in 12/15/23 10:38 Weight: 48 kg 12/15/23 10:38 Body Mass Index (BMI) 18.7 12/15/23 10:38 Respiratory Assessment Respiratory Assessment - gambling monitor: Respiratory Tract Infection Hx - gambling monitor Hx Respiratory Tract Infection No 12/12/23 11:12 STOP Sleep Apnea STOP Sleep Apnea - gambling monitor: STOP Sleep Apnea - gambling monitor Hx Hypertension No 12/12/23 11:12 Hx Sleep Apnea No 12/12/23 11:12 CPAP BIPAP Do you snore loudly (louder No 12/12/23 11:12 than talking or can be heard Do you often feel tired/ No 12/12/23 11:12 fatigued/ sleepy during daytime? Has anyone observed you stop No 12/12/23 11:12 breathing during sleep? STOP Results Negative 12/12/23 11:12 QUESTION #5 FULL TEXT : Do you snore loudly (louder than talking or can be heard through closed doors)? Tobacco Use History Tobacco Use History - gambling monitor: Tobacco Use History - gambling monitor Tobacco Use Smoking Status Current every day smoker 12/12/23 11:12 Hx Tobacco Use Yes 12/12/23 11:12 Years Smoking Packs Smoked per Day Smoking Cessation Date was within the last 15 years Hx Smoking Cessation Date Hx Smoking Cessation Counseling Hematologic Medial History Hematologic Hx - gambling monitor: Hematologic Medical Hx - physical science technician Hx of Blood Transfusion No 12/12/23 11:12 Hx of Transfusion in last 3 No 12/12/23 11:12 Months Date of Last Transfusion (if within last 3 months) Ever experience any problems No 12/12/23 11:12 with transfusion(s)? Specify any problems Hx of Preganancy in last 3 No 12/12/23 11:12 Months Nurse Filling Out Transfusion MGRIFFITH 12/12/23 11:12 & Questions: Date: 12/12/23 12/12/23 11:12 Time: 11:14 12/12/23 11:12 Patient unable to answer at this time (ie. confused, unrespo /Reproduction History /Reproductive History - gambling monitor: /Reproductive Hx- gambling monitor Hx Now Gestational Age (in weeks): EDC: Hx Hx Para Hx Section SAB Active Medications Active Medications: Current Medications Generic Name Dose Route Start Last Admin Trade Name Freq PRN Reason Stop Dose Admin Lactated Ringer's 1,000 mls @ 15 mls/hr 12/15/23 11:00 12/15/23 10:54 IV 15 mls/hr .Q48H DIANA Administration PFSH Medical History Wears glasses Post-menopausal Smoker Family history of colon cancer in father Vertigo Depression Home Medications ?Medication ?Instructions ?Recorded ?Last Taken ?Type escitalopram oxalate 5 mg tablet 5 mg PO QHS mood 02/10/22 02/15/22 History Allergy/AdvReac Type Severity Reaction Status Date / Time No Known Allergies Allergy Verified 12/12/23 11:10 Family History Father Colon cancer Sister Colon cancer Surgical History History of Hx of colonoscopy Social History household members: none current occupational status: employed Smoking Status: Current every day smoker tobacco type: cigarettes substance use type: does not use Review of Systems (Anesthesia) ROS Narrative System reviewed and no additional complaints, except as documented.
--- NOTE | 2023-12-15 11:11 | H&P.OPEN ---
[facility] - General General Date of Service: 12/15/23 HPI Narrative JOSE ALANIZ, is a 63 F who presents for screening colonoscopy. Patient last colonoscopy was 10 years ago at [facility] negative per patient. Patient's father was diagnosed with colon cancer at in his 80s; Sister was diagnosed late 60s/70s patient is unsure if it was localized or not. Discussed that if it was not localized she may be due more often. Patient's bowel moods daily denies any blood. Patient denies any chronic abdominal pain/nausea/vomiting/reflux. [facility] Medical History (Updated 12/15/23 @ 11:[address] Judith Hanks MD) Wears glasses Post-menopausal Smoker Family history of colon cancer in father Vertigo Depression Home Medications ?Medication ?Instructions ?Recorded ?Last Taken ?Type escitalopram oxalate 5 mg tablet 5 mg PO QHS mood 02/10/22 02/15/22 History Allergy/AdvReac Type Severity Reaction Status Date / Time No Known Allergies Allergy Verified 12/12/23 11:10 Family History Father Colon cancer Sister Colon cancer Surgical History History of Hx of colonoscopy Social History household members: none current occupational status: employed Smoking Status: Current every day smoker tobacco type: cigarettes substance use type: does not use Past Medical/Surgical History Planned Operation Planned Operative Procedure(s): COLONOSCOPY Previous Hospitalizations/Surgeries HX Hospitalizations: No Any Problems With Anesthesia: No You/Your Family Experience Fever (Hyperthermia) With Anes: No Cholinesterase deficiency: No Cardiovascular Hx Hypertension: No Respiratory Hx Sleep Apnea: No Hx Respiratory Tract Infection/Cold (presently): No Do You Snore Loudly (louder than talking or can be heard): No Do You Often Feel Tired/ Fatigued/ Sleepy Dring Daytime?: No Has Anyone Observed You Stop Breathing During Sleep?: No Result (for STOP score): Negative Smoking Status: Current every day smoker Gastrointestinal Difficulty Chewing/Swallowing: No Neurological Does patient have nerve stimulator: No Psycho/Social Hx Anxiety: Yes Miscellaneous Recent Exposure to Contagious Disease: No Allergies No Known Allergies Allergy (Verified 12/12/23 11:10) Discharge Is Pt Admitted From a Usp, or a Retirement: No Who Could Help: FRIEND After D/C, Where Do you Plan to Go: Return Home From the PAT History Number of Risk Factors: 1 Vital Signs Vital Signs Vital Signs: 12/15/23 10:38 12/15/23 10:38 12/15/23 11:07 Temperature 98 F 98 F Temperature Source Temporal Pulse Rate 57 L 57 L Respiratory Rate 16 16 Respiratory Pattern Normal Blood Pressure 93/54 L 93/54 L Blood Pressure Mean 67 Blood Pressure Source Monitor Blood Pressure Position Semi-Fowlers Blood Pressure Location Right Arm Pulse Ox 98 98 Oxygen Delivery Method Room Air Weight Weight: 105 lb 13.15 oz Body Mass Index (BMI) 18.7 Physical Exam Const alert, oriented x3 and no apparent distress HEENT normocephalic and head/scalp atraumatic Resp normal respiratory effort Cardio regular rate GI soft to palpation and non-tender; Negative for non-distended Palpation: Negative for guarding Extremity no clubbing, cyanosis or edema Skin no rashes or lesions noted Neuro CN's II-XII intact bilaterally Psych mental status grossly normal Assessment & Plan Assessment/Plan (1) Encounter for screening for malignant neoplasm of colon: (2) Family history of colon cancer in father: Surgery Risks - Colonoscopy I discussed with the patient the risks of the procedure: Yes Risks Include but are not Limited To: Risks include but are not limited to: Bleeding, perforation requiring further surgery, inability to complete colonoscopy requiring barium enema.
--- NOTE | 2023-12-15 11:45 | COLBX_PTH ---
PATIENT: JOSE ALANIZ LOC: EN U#:[id number] AGE/SX: 63/F ROOM: RE12/15/[address]: Dr. Judith Hanks MD : 1960 BED: DIS: 12/15/2023 SPEC #: [id number] RECD: 12/15/23 15:12 STATUS: STEPHIE NOLANDSophia #: [id number] ALFONSO: 12/15/23 11:[address]: Judith Hanks DEPT: SURGICAL PATHOLOGY RECD BY: Sammie Noland ENTERED: 12/16/23 07:15 SP TYPE: COLON BX OTHR DR: Dasia Earl, [facility], PIECE GOODS CLERK-C Tissues: Sigmoid colon biopsy Procedures: Surgery Specimen Level IV HEADER OPERATION: Colonoscopy, polypectomy PRE-OP DIAGNOSIS: Encounter for screening for malignant neoplasm of colon TISSUE SUBMITTED: Sigmoid polyp MICROSCOPIC DIAGNOSIS Sigmoid colon polyp, biopsy: Polypoid fragment of benign colonic mucosa suspicious for hyperplastic change. AM/ 12/19/2023 MICROSCOPIC DESCRIPTION Slides are reviewed. GROSS DESCRIPTION Received in fixative is one container labeled with the patient's name and designated Sigmoid polyp. The specimen consists of one irregular fragment of light shields soft tissue that measures 0.2 x 0.1 x 0.1 cm. The specimen is totally submitted in one cassette. RONEL/ 12/16/2023 TC:5 CPT:78940
--- NOTE | 2023-12-15 12:33 | OP.COLON_ITS ---
Patient Name: Gisselle Chandra Procedure Date: 12/15/2023 12:12 PM Date of : 1960 Age: 63 Procedure: Colonoscopy Indications: Screening for colorectal malignant neoplasm Providers: Judith Hanks MD Referring MD: Eleanor Peguero [facility] Medicines: Monitored Anesthesia Care Patient Profile: This is a 63 year old female. Last Colonoscopy: 10 years ago. Complications: No immediate complications. Procedure: Pre-Anesthesia Assessment: - Prior to the procedure, a History and Physical was performed, and patient medications and allergies were reviewed. The patient's tolerance of previous anesthesia was also reviewed. The risks and benefits of the procedure and the sedation options and risks were discussed with the patient. All questions were answered, and informed consent was obtained. Prior Anticoagulants: The patient has taken no anticoagulant or antiplatelet agents. ASA Grade Assessment: Per anesthesia. After reviewing the risks and benefits, the patient was deemed in satisfactory condition to undergo the procedure. After I obtained informed consent, the scope was passed under direct vision. Throughout the procedure, the patient's blood pressure, pulse, and oxygen saturations were monitored continuously. The Colonoscope was introduced through the anus and advanced to the cecum, identified by appendiceal orifice and ileocecal valve. The colonoscopy was performed without difficulty. The patient tolerated the procedure well. The quality of the bowel preparation was good. Scope In: 12:13:24 PM Scope Withdrawal Time 0 hours 8 minutes 48 seconds Scope Out: 12:28:29 PM Total Procedure Duration Time 0 hours 15 minutes 5 seconds Findings: The perianal and digital rectal examinations were normal. A less than 5 mm polyp was found in the sigmoid colon. The polyp was semi-pedunculated. The polyp was removed with a hot snare. Resection and retrieval were complete. The exam was otherwise without abnormality on direct and retroflexion views. Impression: - One less than 5 mm polyp in the sigmoid colon, removed with a hot snare. Resected and retrieved. - The examination was otherwise normal on direct and retroflexion views. Recommendation: - Discharge patient to home. - Resume previous diet. - Continue present medications. - Await pathology results. - Repeat colonoscopy in 5 years for surveillance based on pathology results. Procedure Code(s): --- Professional --- 65918, PT, Colonoscopy, flexible; with removal of tumor(s), polyp(s), or other lesion(s) by snare technique Diagnosis Code(s): --- Professional --- Z12.11, Encounter for screening for malignant neoplasm of colon D12.5, Benign neoplasm of sigmoid colon CPT copyright 2021 [employer]. All rights reserved. The codes documented in this report are preliminary and upon flat spring assembler review may be revised to meet current compliance requirements. MD Judith Villagomez MD 12/15/2023 12:33:25 PM This report has been signed electronically. Number of Addenda: 0 Note Initiated On: 12/15/2023 12:12 PM
--- NOTE | 2023-12-15 12:34 | OP.CCLET_ITS ---
12/15/2023 Eleanor Peguero [facility] Re : [facility] This procedure was performed on November. My impressions and recommendations are as follows: Impressions : - One less than 5 mm polyp in the sigmoid colon, removed with a hot snare. Resected and retrieved. - The examination was otherwise normal on direct and retroflexion views. Recommendations : - Discharge patient to home. - Resume previous diet. - Continue present medications. - Await pathology results. - Repeat colonoscopy in 5 years for surveillance based on pathology results. My findings are described in the full procedure note, which is enclosed. If I can be of further assistance, please feel free to contact me at Doctor phone number(s): , Work: . Sincerely, MD Judith Villagomez MD 12/15/2023 12:33:25 PM This report has been signed electronically.
--- NOTE | 2023-12-15 12:34 | PCM.POST.ANE ---
Anesthesia: Postop Eval I Current Vital Signs Temperature: 97.6 F Pulse Rate: 66 Blood Pressure: 100/48 Respiratory Rate: 16 Pulse Ox: 96 Oxygen Delivery Method: Room Air Assessment Airway patent: Yes Spontaneous unlabored respirations: Yes Mental status: Asleep nausea: No Vomiting: No Anesthesia Complication: No Fluid Hydration Crystalloid volume administer (ml): 500 Total IV fluid infused: 500 Progress Note Anesthesia document: Postop Eval 1 completed: Yes
--- NOTE | 2023-12-15 13:24 | PCM.POSTANE2 ---
Anesthesia Postop Eval I Sum Postop Eval Completion status Anesthesia document: Postop Eval 1 completed: Yes Anesthesia Postop Eval I Summary Anesthesia Postop Eval I Summary: Anesthesia Postop Eval I: Assessment Summary Airway patent Yes 12/15/23 12:36 Spontaneous unlabored Yes 12/15/23 12:36 respirations Mental status Asleep 12/15/23 12:36 nausea No 12/15/23 12:36 Vomiting No 12/15/23 12:36 Anesthesia Postop Eval I: Fluid Summary Crystalloid volume administer 500 12/15/23 12:36 (ml) Colloids volume administered ( ml) Blood Product volume administered (ml) Total IV fluid infused 500 12/15/23 12:36 Anesthesia Postop Eval I: Summary Notes Anesthesia Complication No 12/15/23 12:36 Anesthesia Complication Comment: Post-operative progress note Anesthesia: Postop Eval II Evaluation Mental status: Awake Pain Level: 0 nausea: No Vomiting: No
== END 2023-12-15 13:31 | disposition home or self-care (01) ==
LOC: EN 10:22 → AC 10:23
PROVIDERS: PCP Nurse Practitioner Family; Referring Provider Nurse Practitioner Family; Visit Provider Surgery
PROC: 0DJD8ZZ Inspection of Lower Intestinal Tract, Via Natural or Artificial Opening Endoscopic (ICD-10-PCS; CPT 45378; principal; 2023-12-15 11:40)
DX: Z12.11 Encounter for screening for malignant neoplasm of colon (principal); K63.5 Polyp of colon; Z80.0 Family history of malignant neoplasm of digestive organs; F17.210 Nicotine dependence, cigarettes, uncomplicated
CPT/HCPCS: 45385; 88305; J7120; J2405